=== PATIENT | male | born 1935 | race Caucasian/White ===

== ENCOUNTER → 2016-05-30 | Outpatient (CLI) | payer MEDICARE, BC | END | disposition home or self-care (01) | LOC: PCVCCLINIC 12:31 | PROVIDERS: ATTEND Internal Medicine Cardiovascular Disease | DX: I25.10 Atherosclerotic heart disease of native coronary artery without angina pectoris (principal); E78.5 Hyperlipidemia, unspecified; I73.9 Peripheral vascular disease, unspecified; R53.83 Other fatigue; E11.9 Type 2 diabetes mellitus without complications; I20.8 Other forms of angina pectoris; I70.1 Atherosclerosis of renal artery | CPT/HCPCS: 93005; G0463 ==

== ENCOUNTER → 2016-09-23 | Outpatient (CLI) | payer MEDICARE, BC | END | disposition home or self-care (01) | LOC: PCVCCLINIC 10:08 | PROVIDERS: ATTEND Internal Medicine Cardiovascular Disease | DX: I25.118 Atherosclerotic heart disease of native coronary artery with other forms of angina pectoris (principal); I10 Essential (primary) hypertension; E78.00 Pure hypercholesterolemia, unspecified; I73.9 Peripheral vascular disease, unspecified; E11.9 Type 2 diabetes mellitus without complications; J44.9 Chronic obstructive pulmonary disease, unspecified; I70.1 Atherosclerosis of renal artery; I77.89 Other specified disorders of arteries and arterioles; F17.200 Nicotine dependence, unspecified, uncomplicated; Z95.1 Presence of aortocoronary bypass graft; Z88.0 Allergy status to penicillin; Z79.82 Long term (current) use of aspirin; Z79.899 Other long term (current) drug therapy; Z85.828 Personal history of other malignant neoplasm of skin | CPT/HCPCS: 36415; 80061; 93005; G0463 ==

== ENCOUNTER → 2016-09-30 | Outpatient (CLI) | payer MEDICARE, BC ==
[~2016-09-30] MED LIST: CLOPIDOGREL BISULFATE 75 MG TABLET ONE; DIAZEPAM 10 MG TABLET. ONE; HEPARIN SODIUM 5,000 UNIT/ML VIAL for PCVC. ONE; HEPARIN for ARTERIAL LINE 1,500 ML ONE; IOHEXOL 300 MG/ML 100ML VIAL. ONE; IOHEXOL 300 MG/ML 50 ML VIAL. ONE; IOHEXOL 350 MG/ML 100 ML VIAL. ONE; IV NORMAL SALINE 1000ML BAG 1,000 ML ONE; LIDOCAINE 1% Multi-Dose 20 ML VIAL. ONE; MIDAZOLAM HCL/PF 2 MG/2 ML VIAL. ONE; fentaNYL PF VIAL 100 MCG/2 ML VIAL ONE
--- NOTE | 2016-09-30 17:58 | PCVCINTER ---
EXAM: 1. AORTOGRAM AND BILATERAL ILIOFEMORAL ANGIOGRAPHY 2. BILATERAL RENAL ANGIOGRAPHY 3. LEFT RENAL ARTERY STENT PLACEMENT INDICATION: Hypertension. Renal atherosclerosis. Peripheral arterial disease. Leg pain. PROCEDURE: Procedure and risks of the procedures listed above were discussed with the patient and consent obtained. Risks including but not limited to bleeding, infection, stroke, vascular injury, neurologic injury, embolization, allergic reactions, bowel ischemia requiring resection, and contrast-induced nephropathy requiring dialysis were discussed as appropriate and consent obtained. Patient was placed on the angiography table. IV conscious sedation was utilized with appropriate monitoring for 90 minutes. The right groin was prepped and draped in the normal sterile fashion. Ultrasound was used to interrogate the right groin and demonstrate the right common femoral artery. An ultrasound image was saved. Under ultrasound guidance a 21 gauge needle was used to gain access into the right common femoral artery and a 5F vascular sheath was placed. Catheter was placed into the suprarenal abdominal aorta and abdominal aortic angiogram performed. Catheter was placed into the distal abdominal aorta and bilateral iliofemoral angiography performed. Catheter was placed into the right renal arteries and right renal angiograms performed. Catheter was placed into the left renal arteries and left renal angiograms performed. I then placed a 7 x 15 [place]z blue stent across the area of stenosis in the proximal left renal artery with subsequent dilatation up to 7.[address] Merchant joined the procedure and he performed coronary angiography. Please see his separate dictation for details. Catheters and wires removed. Sheath was removed and hemostasis obtained using the Mynx device. No immediate complications. FINDINGS: Aortogram: There is one right and one left renal artery. Moderate plaque infrarenal abdominal aorta without significant stenosis. Bilateral iliofemoral angiography: Moderate plaque in the right and left common iliac artery without significant stenosis. Mild plaque in the right and left external iliac arteries without significant stenosis. The right and left common femoral and profunda femoral arteries are patent. Visualized portions of the upper superficial femoral arteries bilaterally are patent. The right and left internal iliac arteries are patent. Right renal artery: Mild plaque proximal vessel does not cause significant stenosis. No branch vessel stenosis. Left renal artery: Moderate plaque at the origin of the vessel causes 90% stenosis. No branch vessel stenosis. Following stent placement as above the left renal artery is widely patent. IMPRESSION: 90% stenosis proximal left renal artery was treated with stent placement with good patency restored. The right renal artery is patent. No flow-limiting aortoiliac stenoses seen. LOC:[id number]
== END | disposition home or self-care (01) ==
LOC: PCVCINTER 07:59
PROVIDERS: ATTEND Nuclear Medicine Nuclear Cardiology
DX: I70.213 Atherosclerosis of native arteries of extremities with intermittent claudication, bilateral legs (principal); I70.1 Atherosclerosis of renal artery; I10 Essential (primary) hypertension
CPT/HCPCS: 36252; 37236; 75630; 76937; 93458; 99152; 99153; C1725; C1751; C1760; C1769; C1876; C1887; C1894; J1644; J2250; J3010; J7030; Q9967